=== PATIENT | male | born 1965 | race Caucasian/White ===

== ENCOUNTER 2020-08-06 10:44 | Emergency (ER) | payer MEDICAID ==
[~2020-08-06] VITALS: Ht 175.3 cm; Wt 86.4 kg
[~2020-08-06 10:44] MED LIST: FLEXERIL; HYDROCODONE
[2020-08-06 11:58] LABS: BASOPHILS % 0.7 % (0.0-2.0); HEMATOCRIT. 54.7 % (42.0-52.0); HEMOGLOBIN. 18.8 g/dL (14.0-18.0); LYMPHOCYTES % 14.1 % (20.0-50.0); MEAN CORPUSCULAR HEMOGLOBIN 31.7 pg (28.0-32.0); MEAN PLATELET VOLUME 11.5 fl (7.4-10.4); MONOCYTES % 5.2 % (2.0-8.0); PLATELET 104 x1000/uL (130-400); RED BLOOD CELL COUNT 5.94 mill/uL (4.7-6.1); RED CELL DISTRIBUTION WIDTH 13.6 % (11.6-14.6)
[2020-08-06 12:05] LABS: CHLORIDE 98 mEq/L (98-107)
[2020-08-06] MEDS ORDERED: METHYLPREDNISOLONE SOD SUCC 125 MG/2 ML VIAL IV STA (12:26)
[2020-08-06] MEDS ORDERED: ALBUTEROL (0.083%) 2.5MG/3ML NEB HHN STA (12:26)
[2020-08-06] MEDS ORDERED: CEFTRIAXONE 1 G PREMIX 50 ML IV ONE (12:30)
[2020-08-06] MEDS ORDERED: SODIUM CHLORIDE 0.9% 1,000 ML IV ONE (12:30)
[2020-08-06] MEDS ORDERED: AZITHROMYCIN 500 MG in DEXT 5% WATER 250 ML IV ONE (12:30)
[2020-08-06 17:59] VITALS: BP 137/91
== END 2020-08-06 18:49 | disposition short-term general hospital (02) ==
LOC: ER 11:07
DX: R06.03 Acute respiratory distress (principal); J44.9 Chronic obstructive pulmonary disease, unspecified; R09.02 Hypoxemia
CPT/HCPCS: 36415; 71045; 80053; 83880; 84484; 85025; 85379; 87040; 87635; 93005; 94640; 96365; 96366; 96367; 96375; 99285; J0456; J0696; J2930; J7030; J7060; Z7610